=== PATIENT | female | born 1985 | race American Indian/Alaskan Native ===

== ENCOUNTER 2017-03-08 03:52 | Outpatient (CLI) | payer MEDICAID ==
[2017-03-08] MEDS ORDERED: LACTATED RINGERS 500 ML IV ONE (03:58)
[2017-03-08 04:19] VITALS: BP 104/68
[2017-03-08] MEDS: LACTATED RINGERS 1,000 ML IV SCH ×2 (04:21→05:45)
[2017-03-08 04:34] LABS: Urine Drugs of Abuse Note Disclamer
[2017-03-08 04:45] LABS: Bilirubin,Urine NEG (Negative); Blood,Urine SM (Negative); Ketones,Urine NEG (Negative); Leukocyte Esterase,Urine SM (Negative); Mucus,Urine FEW /HPF; Nitrite,Urine NEG (Negative); Urobilinogen,Urine < 2.0 mg/dL (<2.0)
[2017-03-08] MEDS ORDERED: BRETHINE SUB-Q PRN (05:29)
[2017-03-08] MEDS ORDERED: VISTARIL PO ONE (07:30)
== END 2017-03-08 08:05 | disposition home or self-care (01) ==
LOC: TRG 03:52 → LD 04:07 → TRG 08:05
PROVIDERS: ATTEND Obstetrics & Gynecology
DX: O62.8 Other abnormalities of forces of labor (principal); Z3A.36 36 weeks gestation of pregnancy
CPT/HCPCS: 59025; 80307; 81001; 96360; 96361; J7120; J3105

== ENCOUNTER 2021-05-23 08:06 | Inpatient (IN) | payer MEDICAID ==
[2021-05-23] MEDS ORDERED: miSOPROStol 200 MCG TAB PR PRN (08:44)
[2021-05-23] MEDS ORDERED: ACETAMINOPHEN 325 MG TAB PO PRN ×2 (08:44→16:23)
[2021-05-23] MEDS ORDERED: TERBUTALINE 1 MG/1 ML INJ SUB-Q PRN (08:44)
[2021-05-23] MEDS ORDERED: METHYLERGONOVINE MALEATE 0.2 MG/ML VIAL IM PRN (08:44)
[2021-05-23] MEDS ORDERED: ePHEDrine SULFATE 50 MG/1 ML INJ IV PRN ×2 (08:44→11:30)
[2021-05-23] MEDS ORDERED: BUTORPHANOL 2 MG/1 ML INJ IV PRN (08:44)
[2021-05-23] MEDS ORDERED: CARBOPROST TROMETHAMINE 250 MCG/1 ML INJ IM PRN (08:44)
[2021-05-23] MEDS ORDERED: OXYTOCIN 10 UNIT/1 ML INJ IM PRN (08:44)
[2021-05-23] MEDS ORDERED: fentaNYL 100 MCG/2 ML INJ IV PRN (08:44)
[2021-05-23] MEDS ORDERED: LOPERAMIDE 2 MG CAP PO PRN (08:44)
[2021-05-23] MEDS ORDERED: MINERAL OIL 30 ML ORAL LIQD PO PRN (08:44)
[2021-05-23] MEDS ORDERED: LACTATED RINGERS 1,000 ML IV SCH (08:45)
[2021-05-23] MEDS ORDERED: LACTATED RINGERS 1,000 ML ONE (08:45)
[2021-05-23] MEDS ORDERED: AMPICILLIN/NS 2 GM/100 ML 2 GM/100 ML BAG IV ONE (09:00)
[2021-05-23] MEDS ORDERED: OXYTOCIN DRIP 30 UNITS/500 ML BAG IV SCH ×2 (09:00)
--- NOTE | 2021-05-23 09:18 | History and Physical Report ---
History of Present Illness Date of examination: 05/23/21 Date of admission: 05/23/2021 Chief complaint: active labor History of present illness: 35yo at 36.6 weeks. [place] [facility] [place] Past Surgical History: no surgical history Social history: no significant social history - Obstetrical History Expected Date of Delivery: 06/14/21 Actual Gestation: 36 Week(s) 6 Day(s) : 6 Para: 5 Medications and Allergies Allergies Allergy/AdvReac Type Severity Reaction Status Date / Time No Known Allergies Allergy Verified 09/11/13 16:58 Home Medications Medication Instructions Recorded Confirmed Last Taken Type Vit/Iron Fum/Folic AC 1 each PO QDAY #120 tablet 09/11/13 12/29/13 05/21/21 Rx [ Vitamin Tablet] Active Meds: Active Medications Acetaminophen (Acetaminophen 325 Mg Tab) 650 mg PO Q4H PRN PRN Reason: Pain, Mild (1-3) Butorphanol Tartrate (Butorphanol 2 Mg/1 Ml Inj) 2 mg IV Q2H PRN PRN Reason: Pain , Severe (7-10) Carboprost Tromethamine (Carboprost Tromethamine 250 Mcg/1 Ml Inj) 250 mcg IM ONCE PRN PRN Reason: Uterine Bleeding Ephedrine Sulfate (Ephedrine Sulfate 50 Mg/1 Ml Inj) 10 mg IV Q2M PRN PRN Reason: Hypotension Fentanyl (Fentanyl 100 Mcg/2 Ml Inj) 100 mcg IV Q2H PRN PRN Reason: Pain,Severe (7-10) LABOR PAIN Oxytocin/Sodium Chloride (Pitocin/Ns 30 Unit/500ml) 30 units in 500 mls @ 2 mls/hr IV TITR ANASTACIO; Protocol Lactated Ringer's (Lactated Ringers) 1,000 mls @ 125 mls/hr IV DIRECT ANASTACIO Oxytocin/Sodium Chloride (Pitocin/Ns 30 Unit/500ml) 30 units in 500 mls @ 40 mls/hr IV TITR ANASTACIO; Protocol Ampicillin Sodium (Ampicillin/Ns 2 Gm/100 Ml) 2 gm in 100 mls @ 100 mls/hr IV ONCE ONE; Protocol Stop: 05/23/21 09:59 Lidocaine (Lidocaine (2%) 20 Mg/1 Ml Vial 20 Ml Mdv) 20 ml INFILTRATI ONCE ONE Stop: 05/23/21 08:45 Loperamide HCl (Loperamide 2 Mg Cap) 2 mg PO ONCE PRN PRN Reason: give with Hemabate Methylergonovine Maleate (Methylergonovine Maleate 0.2 Mg/Ml Vial) 0.2 mg IM ONCE PRN PRN Reason: Uterine Bleeding Mineral Oil (Mineral Oil 30 Ml Oral Liqd) 30 ml PO QHS PRN PRN Reason: Constipation Misoprostol (Misoprostol 200 Mcg Tab) 800 mcg HI ONCE PRN PRN Reason: Uterine Bleeding Oxytocin (Oxytocin 10 Unit/1 Ml Inj) 10 unit IM ONCE PRN PRN Reason: Uterine Bleeding Terbutaline Sulfate (Terbutaline 1 Mg/1 Ml Inj) 0.25 mg SUB-Q ONCE PRN PRN Reason: Hyperstimulation/Hypertonicity - Vital Signs Vital signs: Vital Signs Pulse Pulse Ox 88 99 05/23/21 08:11 05/23/21 08:11 Temp Pulse Resp BP Pulse Ox 98.0 F 60 25 H 106/71 99 05/23/21 08:59 05/23/21 09:08 05/23/21 08:59 05/23/21 08:59 05/23/21 09:08 - Physical Exam Breasts: Positive: deferred Cardiovascular: Regular rate Abdomen: Positive: normal appearance, normal bowel sounds Genitourinary (Female): Positive: normal external genitalia, normal perenium Vagina: Positive: normal moisture Uterus: Positive: normal size Adnexa: both: normal Anus/Rectum: Positive: normal perianal skin Extremities: Positive: normal Deep Tendon Reflex Grade: Normal +2 - Obstetrical FHR: category 1 Cervical Dilatation: 4 Cervical Effacement Percentage: 80 station: -3 Results Result Diagrams: 05/23/21 08:41 All other labs normal. Assessment and Plan active labor grand multiparity no records ama anemia tobacco dependence Plan for admission antibiotics epidural JEEVAN Viveros MD
[2021-05-23 09:22] LABS: Hematocrit 31.4 % (30.3-42.9); Hemoglobin 10.4 gm/dl (10.1-14.3); Mean Corpuscular HGB Conc 33 % (30-34); Mean Corpuscular Volume 88 fl (79-97); Platelet Count 226 K/mm3 (140-440); Red Blood Count 3.56 M/mm3 (3.65-5.03); Red Cell Distribution Width 16.4 % (13.2-15.2)
[2021-05-23] MEDS ORDERED: LIDOCAINE (2%) 20 MG/1 ML VIAL 20 ML MDV INFILTRATI ONE (10:00)
--- NOTE | 2021-05-23 11:03 | Progress Note ---
Subjective - Subjective Date of service: 05/23/21 Interval history: AROM clear cervix 7cm/100%/-1 Category 1 tracing CFM plan for pain meds johnnie Viveros MD. Patient reports: contractions Objective - Vital Signs Vital Signs: Vital Signs - 12hr 05/23/21 05/23/21 05/23/21 08:11 08:16 08:21 Temperature Pulse Rate 88 91 H 78 Respiratory Rate Blood Pressure Blood Pressure [Left] O2 Sat by Pulse 99 99 99 Oximetry O2 Sat by Pulse Oximetry [ Anterior Bilateral Throughout] 05/23/21 05/23/21 05/23/21 08:26 08:31 08:36 Temperature Pulse Rate 84 75 75 Respiratory Rate Blood Pressure Blood Pressure [Left] O2 Sat by Pulse 100 100 100 Oximetry O2 Sat by Pulse Oximetry [ Anterior Bilateral Throughout] 05/23/21 05/23/21 05/23/21 08:48 08:53 08:56 Temperature Pulse Rate 81 75 67 Respiratory Rate Blood Pressure 106/71 Blood Pressure [Left] O2 Sat by Pulse 100 97 Oximetry O2 Sat by Pulse Oximetry [ Anterior Bilateral Throughout] 05/23/21 05/23/21 05/23/21 08:58 08:59 09:03 Temperature 98.0 F Pulse Rate 79 79 68 Respiratory 25 H Rate Blood Pressure Blood Pressure 106/71 [Left] O2 Sat by Pulse 100 99 98 Oximetry O2 Sat by Pulse Oximetry [ Anterior Bilateral Throughout] 05/23/21 05/23/21 05/23/21 09:06 09:08 09:13 Temperature Pulse Rate 60 67 Respiratory Rate Blood Pressure Blood Pressure [Left] O2 Sat by Pulse 99 100 Oximetry O2 Sat by Pulse 100 Oximetry [ Anterior Bilateral Throughout] 05/23/21 05/23/21 05/23/21 09:18 09:23 09:28 Temperature Pulse Rate 72 76 68 Respiratory Rate Blood Pressure Blood Pressure [Left] O2 Sat by Pulse 100 100 100 Oximetry O2 Sat by Pulse Oximetry [ Anterior Bilateral Throughout] 05/23/21 05/23/21 05/23/21 09:33 09:38 09:43 Temperature Pulse Rate 60 61 62 Respiratory Rate Blood Pressure Blood Pressure [Left] O2 Sat by Pulse 99 99 100 Oximetry O2 Sat by Pulse Oximetry [ Anterior Bilateral Throughout] 05/23/21 05/23/21 05/23/21 09:48 09:53 09:58 Temperature Pulse Rate 67 58 L 59 L Respiratory Rate Blood Pressure Blood Pressure [Left] O2 Sat by Pulse 100 100 99 Oximetry O2 Sat by Pulse Oximetry [ Anterior Bilateral Throughout] 05/23/21 05/23/21 05/23/21 10:03 10:08 10:13 Temperature Pulse Rate 63 71 71 Respiratory Rate Blood Pressure Blood Pressure [Left] O2 Sat by Pulse 100 100 100 Oximetry O2 Sat by Pulse Oximetry [ Anterior Bilateral Throughout] 05/23/21 05/23/21 05/23/21 10:18 10:23 10:28 Temperature Pulse Rate 95 H 60 58 L Respiratory Rate Blood Pressure Blood Pressure [Left] O2 Sat by Pulse 100 100 100 Oximetry O2 Sat by Pulse Oximetry [ Anterior Bilateral Throughout] 05/23/21 05/23/21 05/23/21 10:33 10:38 10:43 Temperature Pulse Rate 61 58 L 59 L Respiratory Rate Blood Pressure Blood Pressure [Left] O2 Sat by Pulse 100 100 100 Oximetry O2 Sat by Pulse Oximetry [ Anterior Bilateral Throughout] 05/23/21 05/23/21 05/23/21 10:48 10:53 10:58 Temperature Pulse Rate 75 100 H 88 Respiratory Rate Blood Pressure Blood Pressure [Left] O2 Sat by Pulse 100 99 100 Oximetry O2 Sat by Pulse Oximetry [ Anterior Bilateral Throughout] - Labs Labs: Abnormal Labs 05/23/21 08:41 RBC 3.56 L RDW 16.4 H Laboratory Results - last 24 hr 05/23/21 05/23/21 05/23/21 08:41 08:41 Unknown WBC 7.7 RBC 3.56 L Hgb 10.4 Hct 31.4 MCV 88 MCH 29 MCHC 33 RDW 16.4 H Plt Count 226 Membranes Rupture Negative Blood Type A POSITIVE
--- NOTE | 2021-05-23 11:14 | Anesthesia Consultation ---
Anesthesia Consult and Med Hx Date of service: 05/23/21 - Airway Anesthetic Teeth Evaluation: Poor ROM Head & Neck: Adequate Mental/Hyoid Distance: Adequate Mallampati Class: Class II Intubation Access Assessment: Probably Good - Pulmonary Exam CTA: Yes - Cardiac Exam Cardiac Exam: RRR - Pre-Operative Health Status ASA Pre-Surgery Classification: ASA2 Proposed Anesthetic Plan: Epidural - Pulmonary Hx Smoking: No Hx Asthma: No Hx Respiratory Symptoms: No SOB: No COPD: No Home Oxygen Therapy: No Hx Pneumonia: No Hx Sleep Apnea: No - Cardiovascular System Hx Hypertension: No Hx Coronary Artery Disease: No Hx Heart Attack/AMI: No Hx Angina: No Hx Percutaneous Transluminal Coronary Angioplasty (PTCA): No Hx Cardia Arrhythmia: No Hx Pacemaker: No Hx Internal Defibrillator: No Hx Valvular Heart Disease: No Hx Heart Murmur: No Hx Peripheral Vascular Disease: No - Central Nervous System Hx Neuromuscular Disorder: No Hx Seizures: No CVA: No Hx Back Pain: Yes Hx Psychiatric Problems: No - Gastrointestinal Hx Ulcer: No Hx Gastroesophageal Reflux Disease: Yes - Endocrine Hx Renal Disease: No Hx End Stage Renal Disease: No Hx Cirrhosis: No Hx Liver Disease: No Hx Insulin Dependent Diabetes: No Hx Non-Insulin Dependent Diabetes: No Hx Thyroid Disease: No Hx Hypothyroidism: No Hx Hyperthyroidism: No - Hematic Hx Anemia: Yes Hx Sickle Cell Disease: No - Other Systems Hx Alcohol Use: No Hx Substance Use: No Hx Cancer: No Hx Obesity: No
[2021-05-23] MEDS ORDERED: NALOXONE 2 MG/2 ML INJ IV PRN (11:30)
[2021-05-23] MEDS ORDERED: fentaNYL-BUPIV 2 MCG/ML-0.125% 200 MCG/100 ML BAG EPIDURAL SCH (12:00)
--- NOTE | 2021-05-23 12:04 | Progress Note ---
Labor Epidural - Labor Epidural Start Time: 11:25 Stop Time: 11:31 Performed by:: ZEEKIEL MCCAIN Procedure: Patient is requesting a laboring epidural for laboring pain. Patient IDed, H&P reviewed, all questions and concerns were answered, and consent was signed. Timeout was performed at bedside. Patient in sitting position. Sterile prep and drape was performed. [3] ml of 1% lidocaine skin wheal at L[3]- L [4]. 18- gauge Hien epidural needle was advanced to loss of resistance with saline technique 5cm. Negative CSF negative blood. Epidural catheter advanced to [9] centimeters. [NEGATIVE] Aspiration [NEGATIVE] test dose. Sterile dressing applied. Patient tolerated procedure.
[2021-05-23] MEDS ORDERED: AMPICILLIN/NS 1 GM/50 ML 1 GM/50 ML BAG IV SCH (13:52)
[2021-05-23] MEDS ORDERED: AMPICILLIN/NS 1 GM/50 ML 1 GM/50 ML BAG ONE (13:56)
[2021-05-23] MEDS ORDERED: HYDROcodone/ACETAMINOPHEN 5-325 MG TAB PO PRN (16:23)
[2021-05-23] MEDS ORDERED: MAGNESIUM HYDROXIDE (MOM) ORAL LIQD UDC PO PRN (16:23)
[2021-05-23] MEDS ORDERED: ONDANSETRON 4 MG/2 ML INJ IV PRN (16:23)
[2021-05-23] MEDS ORDERED: PROMETHAZINE 25 MG TAB PO PRN (16:23)
[2021-05-23] MEDS ORDERED: LANOLIN/ZINC/DIMETHICONE (LANSINOH) 7 GM TP PRN (16:23)
[2021-05-23] MEDS ORDERED: PROMETHAZINE 25 MG RECT SUPP PR PRN (16:23)
[2021-05-23] MEDS ORDERED: diphenhydrAMINE 25 MG CAP PO PRN (16:23)
[2021-05-23] MEDS ORDERED: WITCH HAZEL/ GLYCERIN PAD TP PRN (16:23)
[2021-05-23] MEDS ORDERED: KETOROLAC 30 MG/1 ML INJ IV PRN (16:23)
--- NOTE | 2021-05-23 16:23 | Procedure Note ---
OB Delivery Note - Delivery Date of Delivery: 05/23/21 Surgeon: LAURE GILLIAM - Vaginal Delivery position: OA Intrapartum events: none Delivery induction: none Delivery augmentation: rupture of membranes, pitocin Delivery monitor: external FHT, external uterine Route of delivery: Delivery placenta: spontaneous Delivery cord: 3 umbilical vessels Episiotomy: none Delivery laceration: none Delivery comments: Patient pushed to deliver a viable male over an intact perineum with weight and . PositionLOA, no nuchal cord. Spontaneous cry at delivery. Delivery of the anterior shoulder atraumatic, remainder of delivery uncomplicated. Cord clamped cut and baby handed to waiting JESSICA team. Spontaneous delivery of an intact placenta with three-vessel cord. Inspection of the perineum cervix and vagina revealed no lacerations. Firm fundus, EBL. All sponge needle and instrument counts correct x2. Mom and baby stable to . Candelaria Gilliam MD
[2021-05-23] MEDS: IBUPROFEN 600 MG TAB PO SCH (23:27)
[2021-05-24 06:09] LABS: Hematocrit 25.5 % (30.3-42.9); Hemoglobin 8.6 gm/dl (10.1-14.3)
[2021-05-24] MEDS: IBUPROFEN 600 MG TAB PO SCH (07:46)
--- NOTE | 2021-05-24 09:10 | Progress Note ---
Assessment and Plan A: day 1 S/P . Anemia. P: Iron supplementation. Anticipate discharge home tomorrow if patient continues to do well. Subjective - Subjective Date of service: 05/24/21 Principal diagnosis: day 1 S/P Patient reports: appetite normal, voiding normally, pain well controlled, flatus, ambulating normally, no dizzy ambulation, no nauseated [place]: doing well Objective - Vital Signs Latest vital signs: Vital Signs Temp Pulse Resp BP BP Pulse Ox Pulse Ox 05/24/21 06:35 18 05/24/21 04:00 98.7 F 88 18 101/66 05/24/21 00:11 98.0 F 68 18 96/38 99 05/23/21 20:05 100 05/23/21 18:45 98.4 F 60 16 107/62 100 05/23/21 18:35 100 05/23/21 17:39 68 100 05/23/21 17:36 63 110/69 05/23/21 17:34 67 100 05/23/21 17:29 64 100 05/23/21 17:27 58 L 113/65 05/23/21 17:26 98.3 F 70 14 113/65 100 05/23/21 17:24 65 100 05/23/21 17:20 71 98/57 05/23/21 17:19 75 100 05/23/21 17:14 66 100 05/23/21 17:12 71 70 L 05/23/21 17:09 76 100 05/23/21 17:06 64 100/53 05/23/21 17:04 65 100 05/23/21 16:59 64 100 05/23/21 16:54 70 100 05/23/21 16:53 74 91 05/23/21 16:49 63 100 05/23/21 16:47 72 94 05/23/21 16:44 69 100 05/23/21 16:39 71 92 05/23/21 16:36 81 90 05/23/21 16:34 67 100 05/23/21 16:29 73 100 05/23/21 16:24 72 100 05/23/21 16:21 68 116/73 05/23/21 16:19 72 100 05/23/21 16:14 92 H 100 05/23/21 16:09 69 100 05/23/21 16:06 130 H 116/87 05/23/21 16:04 86 100 05/23/21 16:01 71 75 L 05/23/21 15:59 67 100 05/23/21 15:56 73 93 05/23/21 15:54 92 H 100 05/23/21 15:49 97 H 100 05/23/21 15:44 74 100 05/23/21 15:39 66 100 05/23/21 15:34 67 100 05/23/21 15:31 69 112/67 05/23/21 15:29 59 L 100 05/23/21 15:24 58 L 100 05/23/21 15:19 61 100 05/23/21 15:14 62 100 05/23/21 15:09 64 100 05/23/21 15:04 76 100 05/23/21 15:01 61 92/55 05/23/21 14:59 63 100 05/23/21 14:54 60 100 05/23/21 14:49 61 100 05/23/21 14:44 60 100 05/23/21 14:39 59 L 100 05/23/21 14:34 63 100 05/23/21 14:33 61 96/61 05/23/21 14:29 81 100 05/23/21 14:24 60 100 05/23/21 14:19 65 100 05/23/21 14:14 82 100 05/23/21 14:09 60 100 05/23/21 14:04 67 100 05/23/21 14:03 60 89/55 05/23/21 13:59 75 100 05/23/21 13:54 58 L 100 05/23/21 13:49 76 100 05/23/21 13:44 63 100 05/23/21 13:39 71 100 05/23/21 13:34 66 100 05/23/21 13:29 74 100 05/23/21 13:28 67 94/58 05/23/21 13:24 67 100 05/23/21 13:23 81 82/62 05/23/21 13:19 77 99 05/23/21 13:14 79 98 05/23/21 13:09 74 100 05/23/21 13:08 63 89/54 75 L 05/23/21 13:04 78 99 05/23/21 12:59 77 100 05/23/21 12:54 75 100 05/23/21 12:52 93 H 90/66 05/23/21 12:49 70 99 05/23/21 12:44 86 100 05/23/21 12:39 65 100 05/23/21 12:38 76 87/59 05/23/21 12:34 81 99 05/23/21 12:29 73 100 05/23/21 12:24 67 96/61 100 05/23/21 12:19 76 100 05/23/21 12:14 83 100 05/23/21 12:09 70 100 05/23/21 12:07 75 92/63 05/23/21 12:05 69 85/61 05/23/21 12:04 75 100 05/23/21 11:59 63 100 05/23/21 11:54 75 99 05/23/21 11:51 63 92/61 05/23/21 11:49 76 100 05/23/21 11:48 81 91/61 05/23/21 11:45 67 95/61 05/23/21 11:43 90 100 05/23/21 11:42 62 96/52 05/23/21 11:41 61 88 05/23/21 11:38 80 100 05/23/21 11:36 70 106/59 05/23/21 11:33 104 H 112/65 100 05/23/21 11:30 96 H 117/66 05/23/21 11:28 87 100 05/23/21 11:27 100 H 122/88 05/23/21 11:24 82 110/75 05/23/21 11:23 96 H 100 05/23/21 11:22 71 106/67 05/23/21 11:18 91 H 100 05/23/21 11:13 83 100 05/23/21 11:08 64 100 05/23/21 11:03 99 H 100 05/23/21 10:58 88 100 05/23/21 10:53 100 H 99 05/23/21 10:48 75 100 05/23/21 10:43 59 L 100 05/23/21 10:38 58 L 100 05/23/21 10:33 61 100 05/23/21 10:28 58 L 100 05/23/21 10:23 60 100 05/23/21 10:18 95 H 100 05/23/21 10:13 71 100 05/23/21 10:08 71 100 05/23/21 10:03 63 100 05/23/21 09:58 59 L 99 05/23/21 09:53 58 L 100 05/23/21 09:48 67 100 05/23/21 09:43 62 100 05/23/21 09:38 61 99 05/23/21 09:33 60 99 05/23/21 09:28 68 100 05/23/21 09:23 76 100 05/23/21 09:18 72 100 05/23/21 09:13 67 100 Intake and Output 05/23/21 05/24/21 05/24/21 23:59 07:59 15:59 Intake Total 1470.733 360 Output Total 400 500 Balance 1070.733 -140 Intake: IV 1170.733 Lactated Ringers 1,000 ml 1000 @ 125 mls/hr IV DIRECT ANASTACIO Rx#:[id number] PITOCin/NS 30 UNIT/500ML 5.733 30 units In 500 ml @ 2 mls/hr IV TITR ANASTACIO Rx#: [id number] PITOCin/NS 30 UNIT/500ML 165 30 units In 500 ml @ 40 mls/hr IV TITR ANASTACIO Rx#: [id number] Oral 360 Intake, Free Water 300 Output: Urine 400 500 Void 400 500 Other: Total, Intake Amount 360 Total, Output Amount 400 500 - Exam Cardiovascular: Present: Regular rate Lungs: Present: Clear to auscultation Abdomen: Present: normal appearance, soft. Absent: distention, tenderness, guarding, rigidity Uterus: Present: normal, firm, fundal height below umbilicus. Absent: bogginess, tenderness Extremities: Absent: tenderness, edema - Labs Labs: Abnormal lab results 05/23/21 05/24/21 Range/Units 08:41 05:56 RBC 3.56 L (3.65-5.03) M/mm3 Hgb 8.6 L (10.1-14.3) gm/dl Hct 25.5 L (30.3-42.9) % RDW 16.4 H (13.2-15.2) %
[2021-05-24] MEDS ORDERED: FERROUS SULFATE 325 MG TAB PO SCH (10:00)
--- NOTE | 2021-05-24 10:09 | Post Anesthesia Evaluation ---
- Post Anesthesia Evaluation Patient Participated: Yes Airway Patent: Yes Stable Respiratory Function: Yes Nausea/Vomiting: No Temp > 96.8F: Yes Pain Manageable: Yes Adequeate Hydration: Yes Anesthesia Complications: No Block Receding Appropriately: Yes Patient on Ventilator: No
--- NOTE | 2021-05-24 17:01 | Discharge Summary ---
Providers - Providers Date of Admission: 05/23/21 08:44 Date of discharge: 05/24/21 Attending physician: LAURE GILLIAM MD Primary care physician: LAURE GILLIAM MD Hospitalization Reason for admission: active labor Delivery: Episiotomy: none Laceration: none Other procedures: none complications: none Discharge diagnosis: IUP at term delivered baby: male Pertinent studies: Labs Hospital course: Stable hospital course. Condition at discharge: Good Disposition: 01 HOME / SELF CARE / HOMELESS - Discharge Diagnoses (1) Anemia Status: Acute (2) delivery Status: Acute Plan - Provider Discharge Summary Activity: routine, no sex for 6 weeks, no heavy lifting 4 weeks, no strenuous exercise Diet: routine Instructions: routine Additional instructions: Continue taking your vitamins and iron supplements at home. Go to [facility] office in 2 weeks for follow up visit. Call your doctor immediately for: * Fever > 100.5 * Heavy vaginal bleeding ( >1 pad per hour) * Severe persistent headache * Shortness of breath * Reddened, hot, painful area to leg or breast - Follow up plan Follow up: LAURE GILLIAM MD [Primary Care Provider] - 14 Days Forms: [facility] Discharge Summary
[2021-05-24 17:23] VITALS: BP 106/67
== END 2021-05-24 18:08 | disposition home or self-care (01) | DRG 775 ==
LOC: TRG 08:06 → APU 08:09 → LD 08:40 → TRG 08:44 → LD 08:44 → OB 18:01
PROVIDERS: ADMIT Obstetrics & Gynecology; ATTEND Obstetrics & Gynecology
PROC: 10E0XZZ Delivery of Products of Conception, External Approach (ICD-10-PCS; principal; 2021-05-23)
PROC: 3E0R3BZ Introduction of Anesthetic Agent into Spinal Canal, Percutaneous Approach (ICD-10-PCS; 2021-05-23)
PROC: 00HU33Z Insertion of Infusion Device into Spinal Canal, Percutaneous Approach (ICD-10-PCS; 2021-05-23)
DX: O99.02 Anemia complicating childbirth (principal); Z37.0 Single live birth; O60.13X0 Preterm labor second trimester with preterm delivery third trimester, not applicable or unspecified; D64.9 Anemia, unspecified; O99.334 Smoking (tobacco) complicating childbirth; Z20.822 Contact with and (suspected) exposure to COVID-19; K21.9 Gastro-esophageal reflux disease without esophagitis; O99.62 Diseases of the digestive system complicating childbirth; O09.513 Supervision of elderly primigravida, third trimester
CPT/HCPCS: 36415; 84112; 85014; 85018; 85027; 86592; 86850; 86900; 86901; 96360; G0378; J0290; J0595; J2210; J2405; J2590; J7120; U0003